=== PATIENT | male | born 1990 | race Caucasian/White ===

== ENCOUNTER 2017-01-08 19:36 | Emergency (ER) | payer SELFPAY ==
[2017-01-08] MEDS ORDERED: diphenhydrAMINE 50 MG/ML SDV IVPUSH ONE (19:45)
[2017-01-08] MEDS ORDERED: methylPREDNISolone Sodium Succinate 125 MG/2 ML SDV IVPUSH ONE (19:45)
--- NOTE | 2017-01-08 19:45 | EDM.PDOC ---
ED HPI GENERAL MEDICAL PROBLEM - General Stated Complaint: BEE Time Seen by Provider: 01/08/17 19:45 Source of Information: Reports: Patient History Limitations: Reports: No Limitations - History of Present Illness INITIAL COMMENTS - FREE TEXT/NARRATIVE: 26 yo gentleman with no significant medical history who presented to the ER following a Bee sting. Reports that he was stung by a Bee on the Left side of his neck. He thinks that he may be allergic to Bee sting. Denied any chest tightness, SOB, Wheezing, abdominal pain. Presented to the ER for further evaluation. Onset: Today Onset Date: 01/08/17 Onset Time: 20:00 Duration: Hour(s): (occurred about an hour ago) Location: Reports: Neck Improves with: Reports: None Worsens with: Reports: None Associated Symptoms: Reports: No Other Symptoms Left Neck Pain Score (Numeric/FACES): 5 - Related Data Allergies Allergy/AdvReac Type Severity Reaction Status Date / Time No Known Allergies Allergy Verified 01/08/17 20:00 Home Meds: Home Meds Famotidine [Pepcid] 20 mg PO BID #10 tablet 01/08/17 [Rx] diphenhydrAMINE [Benadryl] 25 mg PO Q6H PRN #20 cap 01/08/17 [Rx] predniSONE 40 mg PO DAILY PRN #5 tablet 01/08/17 [Rx] Past Medical History - Past Health History Medical/Surgical History: Denies Medical/Surgical History Social & Family History - Tobacco Use Smoking Status *Q: Current Every Day Smoker Years of Tobacco use: 5 ED ROS GENERAL - Review of Systems Review Of Systems: See Below Constitutional: Reports: No Symptoms HEENT: Reports: No Symptoms Cardiovascular: Reports: No Symptoms Endocrine: Reports: No Symptoms GI/Abdominal: Reports: No Symptoms : Reports: No Symptoms Musculoskeletal: Reports: No Symptoms Skin: Reports: No Symptoms Neurological: Reports: No Symptoms Psychiatric: Reports: No Symptoms Hematologic/Lymphatic: Reports: No Symptoms Immunologic: Reports: No Symptoms ED EXAM, GENERAL - Physical Exam Exam: See Below Exam Limited By: No Limitations General Appearance: Alert, WD/WN, No Apparent Distress Eye Exam: Bilateral Eye: EOMI, PERRL Ears: Normal External Exam, Normal Canal, Hearing Grossly Normal, Normal TMs Nose: Normal Inspection, Normal Mucosa, No Blood Throat/Mouth: Normal Inspection, Normal Lips, Normal Teeth, Normal Oropharynx Head: Atraumatic, Normocephalic Neck: Normal Inspection, Supple, Non-Tender, Full Range of Motion Respiratory/Chest: Lungs Clear Cardiovascular: Normal Peripheral Pulses, Regular Rate, Rhythm, No Edema GI/Abdominal: Normal Bowel Sounds, Soft, Non-Tender, No Organomegaly Back Exam: Normal Inspection, Full Range of Motion Extremities: Normal Inspection, Normal Range of Motion, Non-Tender, No Pedal Edema Neurological: Alert, Oriented, CN II-XII Intact, Normal Cognition, Normal Gait Psychiatric: Normal Affect, Normal Mood Skin Exam: Warm Lymphatic: No Adenopathy Course - Vital Signs Last Recorded V/S: Last Vital Signs Temp 36.7 C 01/08/17 19:36 Pulse 138 H 01/08/17 19:36 Resp 20 01/08/17 19:36 BP 134/75 01/08/17 19:36 Pulse Ox 100 01/08/17 19:36 - Orders/Labs/Meds Meds: Medications Discontinued Medications Generic Name Dose Route Start Last Admin Trade Name Markus PRN Reason Stop Dose Admin Diphenhydramine HCl 25 mg 01/08/17 19:45 01/08/17 19:49 Benadryl IVPUSH 01/08/17 19:46 25 mg ONETIME ONE Administration Famotidine 20 mg 01/08/17 19:46 01/08/17 20:26 Pepcid IVPUSH 01/08/17 19:47 Not Given ONETIME ONE Famotidine Confirm 01/08/17 19:59 01/08/17 20:26 Famotidine In Ns Premix Administered 01/08/17 20:00 Not Given Dose 20 mg in 50 mls @ as directed .ROUTE .STK-MED ONE Famotidine 20 mg/ Premix 50 mls @ 100 mls/hr 01/08/17 20:14 01/08/17 20:25 IV 01/08/17 20:43 100 mls/hr ONETIME ONE Administration Methylprednisolone Sodium Succinate 125 mg 01/08/17 19:45 01/08/17 19:46 Solu-Medrol IVPUSH 01/08/17 19:46 125 mg ONETIME ONE Administration Departure - Departure Time of Disposition: 20:59 Disposition: Home, Self-Care 01 Condition: Good Clinical Impression: Bee sting Qualifiers: Encounter type: initial encounter Injury intent: accidental or unintentional Qualified Code(s): T63.441A - Toxic effect of venom of bees, accidental ( unintentional), initial encounter - Discharge Information Prescriptions: Famotidine [Pepcid] 20 mg PO BID #10 tablet diphenhydrAMINE [Benadryl] 25 mg PO Q6H PRN #20 cap PRN Reason: allergy predniSONE 40 mg PO DAILY PRN #5 tablet PRN Reason: allergy Instructions: Insect Bite, Bee, Wasp, or Hornet Sting Referrals: PCP,None [Primary Care Provider] - Forms: ED Department Discharge Additional Instructions: Follow with PCP Return if symptoms worsen Call your Physician or Return to Emergency Department if: * Your condition worsens in any way. * You develop fever greater than 100.4. * You have vomitting that does not stop with medications. * You have pain that is not controlled with medications.
[2017-01-08] MEDS ORDERED: Famotidine 20 MG/2 ML SDV IVPUSH ONE (19:46)
[2017-01-08] MEDS ORDERED: Famotidine/Normal Saline 20 MG/50 ML BAG ONE (19:59)
[2017-01-08] MEDS ORDERED: Famotidine/Normal Saline 20 MG in Premix Bag 1 BAG IV ONE (20:14)
[2017-01-08 21:13] VITALS: BP 139/79
== END 2017-01-08 21:13 | disposition home or self-care (01) ==
LOC: FB.ED 19:36
DX: T63.441A Toxic effect of venom of bees, accidental (unintentional), initial encounter (principal); F17.210 Nicotine dependence, cigarettes, uncomplicated
CPT/HCPCS: 96365; 96375; 99282; J1200; J2930; 99284